=== PATIENT | male | born 1940 | race Two or more races ===

== ENCOUNTER 2018-08-13 00:40 | Inpatient (IN) | payer MEDICARE, OTHER ==
[~2018-08-13] VITALS: Ht 175.3 cm; Wt 78.5 kg
--- NOTE | 2018-08-13 00:42 | NUR ---
[id number] FROM HOME C/C GENERALIZED WEAKNESS X1 DAY. LAST WELL KNOWN TIME STATED BY DAUGHTER YESTERDAY. -CP. -COUGH. -DYSURIA. FEBRILE. -N/V/D., TO ER BED 4, HOOKED TO MONITOR, AWAITING MD GERARDO
--- NOTE | 2018-08-13 00:45 | NUR ---
DR BEGUM AT BEDSIDE
[2018-08-13] MEDS ORDERED: ACETAMINOPHEN 650 MG/20.3 ML UDC PO ONE (01:00)
[2018-08-13] MEDS ORDERED: KETOROLAC TROMETHAMINE INJ 30 MG/ML VIAL IV ONE (01:00)
[2018-08-13] MEDS ORDERED: IV NS 0.9% 1,000 ML BAG IV ONE (01:00)
[2018-08-13] MEDS ORDERED: KETOROLAC TROMETHAMINE 15 MG/ML VIAL ONE (01:04)
[2018-08-13] MEDS ORDERED: ACETAMINOPHEN 325 MG TABLET ONE (01:04)
[2018-08-13 01:12] LABS: BASOPHILS % (AUTO) 0.1 % (0.0-2.0); HEMATOCRIT 42 % (39-51); HEMOGLOBIN 13.9 g/dL (13.5-17.5); LYMPHOCYTES # (AUTO) 0.3 /CMM (0.8-4.8); LYMPHOCYTES % (AUTO) 1.7 % (20.0-44.0); MEAN CORPUSCULAR HGB CONC 33 g/dl (31.0-36.0); MEAN CORPUSCULAR VOLUME 90 fL (80-96); MONOCYTES # (AUTO) 0.7 /CMM (0.1-1.30); MONOCYTES % (AUTO) 3.9 % (2.0-12.0); NEUTROPHILS # (AUTO) 16.5 /CMM (1.8-8.9); NEUTROPHILS % (AUTO) 94.3 % (43.0-81.0); PLATELET COUNT (AUTO) 191 /CMM (150-450); RED BLOOD CELL COUNT(AUTO) 4.67 MIL/uL (4.5-6.0); WHITE BLOOD COUNT (AUTO) 17.5 K/uL (4.3-11.0)
[2018-08-13 01:15] LABS: CALCIUM, SERUM 9.2 mg/dL (8.5-10.1); CARBON DIOXIDE 25 mmol/L (21-32); CHLORIDE 106 mmol/L (98-107); CREATININE 1.8 mg/dL (0.6-1.3); GLUCOSE 135 mg/dL (74-106); POTASSIUM 4.9 mmol/L (3.5-5.1); SODIUM SERUM 141 mmol/L (136-145); UREA NITROGEN, BLOOD 24 mg/dL (7-18)
[2018-08-13 01:20] LABS: ALANINE AMINOTRANSFERASE 20 U/L (12-78); ALBUMIN 3.6 g/dL (3.4-5.0); ALKALINE PHOSPHATASE 78 U/L (46-116); ASPARTATE AMINOTRANSFERASE 27 U/L (15-37); BILIRUBIN,TOTAL 0.4 mg/dL (0.2-1.0); TOTAL PROTEIN, SERUM 7.6 g/dL (6.4-8.2)
[2018-08-13 01:23] LABS: APPEARANCE,URINE Slightly Cloudy (CLEAR); BILIRUBIN,URINE Negative (NEGATIVE); BLOOD, URINE Trace-lysed Ery/uL (NEGATIVE); COLOR,URINE Yellow (YELLOW); KETONES,URINE Trace (NEGATIVE); LEUKOCYTE ESTERASE ,URINE Trace (NEGATIVE); NITRITE, URINE Negative (NEGATIVE); PH,URINE 5.5 (5.0-8.0); PROTEIN,URINE >=300 mg/dl (NEGATIVE); UGLUCOSE 100 MG/DL mg/dL (NEGATIVE); UROBILINOGEN,URINE 0.2 EU/dL (0.2)
[2018-08-13] MEDS ORDERED: VANCOMYCIN 1 GM in IV NS 0.9% 250 ML IV STA (01:34)
[2018-08-13] MEDS ORDERED: CEFEPIME 1 GM in IV NS 0.9% 50 ML IV STA (01:34)
--- NOTE | 2018-08-13 01:41 | NUR ---
FLU SWAB DONE AND SENT TO LAB
[2018-08-13] MEDS ORDERED: VANCOMYCIN 1 GM VIAL ONE (01:43)
[2018-08-13] MEDS ORDERED: CEFEPIME 1 GM VIAL ONE (01:43)
[2018-08-13 01:52] LABS: BACTERIA,URINE Few /HPF (None Seen); WBC,URINE 51-80 /HPF (0-3)
[2018-08-13 01:53] LABS: SQUAMOUS EPITHELIAL CELL,UR Rare /HPF (None Seen)
[2018-08-13] MEDS ORDERED: MAG HYDROX/AL HYDROX/SIMETH 30 ML UDC PO PRN (02:30)
[2018-08-13] MEDS ORDERED: Z GUARD REMEDY 2 OZ OINT TP PRN (02:30)
[2018-08-13] MEDS ORDERED: MAGNESIUM HYDROXIDE 30 ML UDC PO PRN (02:30)
[2018-08-13] MEDS ORDERED: ACETAMINOPHEN 325 MG TABLET PO PRN (02:30)
[2018-08-13] MEDS ORDERED: ONDANSETRON HCL/PF 4 MG/2 ML VIAL IVP PRN (02:30)
[2018-08-13] MEDS ORDERED: ZOLPIDEM TARTRATE 5 MG TABLET PO PRN (02:30)
[2018-08-13] MEDS ORDERED: HYDROCODONE/APAP 5/325MG 1 EACH TABLET PO PRN (02:30)
--- NOTE | 2018-08-13 02:53 | NUR ---
REPORT GIVEN TO BRUNO PADILLA FOR [facility]
--- NOTE | 2018-08-13 02:53 | NUR ---
REPORT GIVEN TO KIZZY PADILLA OF TELE UNIT FOR [facility]
[2018-08-13] MEDS ORDERED: CEFTRIAXONE 1 G in IV D5W 50 ML IV ONE (03:30)
--- NOTE | 2018-08-13 03:33 | NUR ---
PT TRANSFERRED PER [facility]
[2018-08-13] MEDS ORDERED: CEFTRIAXONE 1 G VIAL ONE (03:37)
[2018-08-13] MEDS: IV NS 0.9% 1,000 ML IV SCH ×3 (03:54→22:28)
[2018-08-13 04:00] VITALS: BP 135/70
[2018-08-13] MEDS ORDERED: EZET10TA14 PO (04:08)
[2018-08-13] MEDS ORDERED: [UNRECOGNIZED DRUG - CODE] IV (04:08)
[2018-08-13] MEDS ORDERED: METO100T14 PO (04:08)
[2018-08-13] MEDS ORDERED: FINA5TAB11 PO (04:08)
[2018-08-13] MEDS ORDERED: ROSU20TA2 PO (04:09)
[2018-08-13] MEDS ORDERED: MEMA10TA PO (04:09)
[2018-08-13] MEDS ORDERED: CLON0.1T PO (04:09)
[2018-08-13] MEDS ORDERED: NIAC500T2 PO (04:09)
[2018-08-13] MEDS ORDERED: METF500S7 PO (04:09)
[2018-08-13] MEDS ORDERED: GLIP5TAB13 PO (04:09)
[2018-08-13] MEDS ORDERED: AMLO-335 PO (04:09)
[2018-08-13] MEDS ORDERED: OMEP20CA10 PO (04:09)
[2018-08-13] MEDS ORDERED: DONE10TA11 PO (04:09)
[2018-08-13] MEDS ORDERED: RIVA10TA PO (04:09)
[2018-08-13] MEDS ORDERED: CHOL20004 PO (04:09)
--- NOTE | 2018-08-13 04:30 | NUR ---
TANK TRUCK MECHANIC NOTES RECEIVED PT ON BED. ON ROOM AIR NO RESPIRATORY DISTRESS NOTED. ON TELE MONITOR SR. PHYSICAL ASSESSMENT AND PICTURE TAKEN DONE. BELONGING LIST SIGNED. PT DAUGHTER WISHES DO NOT INTUBATE OKAY TO CPR. HEAD OF BED ELEVATED. SIDE RAILS UP. CALL LIGHT WITHIN REACH. BED ALARM ON. WILL CONTINUE TO MONITOR PT CLOSELY.
--- NOTE | 2018-08-13 05:05 | NUR ---
DEMAND MANAGER NOTES PT DAUGHTER REFUSING VACCINE FOR NOW. WILL DECIDE LATER DURING THE STAY.
--- NOTE | 2018-08-13 07:21 | NUR ---
FOUNTAIN SUPERVISOR NOTES NO ACUTE CHANGES NOTED DURING THE SHIFT. PROVIDED COMFORT AND SAFETY. WILL ENDORSE TO THE AM NURSE FOR CONTINUITY OF CARE.
[2018-08-13 08:00] VITALS: BP 145/76
--- NOTE | 2018-08-13 08:00 | NUR ---
SENIOR WEB DESIGNER NOTE RECEIVED PATIENT UP ON CHAIR WITH DAUGHTER AT BEDSIDE ,HAVING BREAKFAST , ALERT ORIENTED X3, SPEAKS [id number],, ON TELE MONITOR SR HR 76, LT FA HL INTACT ,ON IVF ORDERED CALL LIGHT WIBI REACH , PLAN OF CARE DISCUSSED WITH PATIENT , NO SOB NOTED, NO C\O PAIN OR DISCOMFORT. WILL CONT TO MONITOR CLOSELY
[2018-08-13 08:41] LABS: BASOPHILS % (AUTO) 0.2 % (0.0-2.0); HEMATOCRIT 34 % (39-51); HEMOGLOBIN 11.1 g/dL (13.5-17.5); LYMPHOCYTES # (AUTO) 0.5 /CMM (0.8-4.8); LYMPHOCYTES % (AUTO) 3.6 % (20.0-44.0); MEAN CORPUSCULAR HGB CONC 33 g/dl (31.0-36.0); MEAN CORPUSCULAR VOLUME 90 fL (80-96); MONOCYTES # (AUTO) 0.6 /CMM (0.1-1.30); MONOCYTES % (AUTO) 4.4 % (2.0-12.0); NEUTROPHILS # (AUTO) 12.9 /CMM (1.8-8.9); NEUTROPHILS % (AUTO) 91.8 % (43.0-81.0); PLATELET COUNT (AUTO) 144 /CMM (150-450); RED BLOOD CELL COUNT(AUTO) 3.76 MIL/uL (4.5-6.0); WHITE BLOOD COUNT (AUTO) 14.1 K/uL (4.3-11.0)
[2018-08-13 08:44] LABS: CALCIUM, SERUM 7.5 mg/dL (8.5-10.1); CARBON DIOXIDE 26 mmol/L (21-32); CHLORIDE 107 mmol/L (98-107); CREATININE 1.6 mg/dL (0.6-1.3); GLUCOSE 124 mg/dL (74-106); POTASSIUM 3.8 mmol/L (3.5-5.1); SODIUM SERUM 142 mmol/L (136-145); UREA NITROGEN, BLOOD 22 mg/dL (7-18)
[2018-08-13] MEDS ORDERED: DEXTROSE 50%-WATER 50 ML DISP.SYRIN IV PRN (09:00)
[2018-08-13] MEDS ORDERED: FLUMAZENIL 0.5 MG VIAL IV SCH (09:00)
[2018-08-13] MEDS ORDERED: FLUMAZENIL 0.5 MG VIAL IV PRN (09:30)
[2018-08-13] MEDS: RIVAROXABAN 10 MG TABLET PO SCH (10:09)
[2018-08-13] MEDS: MEMANTINE HCL 5 MG TABLET PO SCH (10:10)
[2018-08-13] MEDS: PANTOPRAZOLE 40 MG TABLET.DR PO SCH (10:11)
[2018-08-13] MEDS: EZETIMIBE 10 MG TABLET PO SCH (10:11)
[2018-08-13] MEDS: NIACIN EXT TAB (500MG) 500 MG TABLET.SA PO SCH (10:12)
[2018-08-13] MEDS: FINASTERIDE (5 MG) 5 MG TABLET PO SCH (10:12)
[2018-08-13] MEDS: VALSARTAN 80 MG TABLET PO SCH (10:15)
[2018-08-13] MEDS: CLONIDINE HCL 0.1 MG TABLET PO SCH (10:15)
[2018-08-13] MEDS: AMLODIPINE BESYLATE 10 MG TABLET PO SCH (10:16)
[2018-08-13] MEDS ORDERED: TAMSULOSIN 0.4 MG CAP.SR.24H PO SCH (10:30)
--- NOTE | 2018-08-13 11:07 | NUR ---
MS RN NOTE PT DONE ABLE TO AMBULATE WITH STAND BY ASSISTANCE, ALSO RENAL US DONE ORDERED ,WILL F\U Addendum: 08/13/18 at 1117 by MIGUEL ANGEL SANTIAGO RN PER ALEXANDER PADILLA STEAM SERVICE INSPECTOR NO DVT PUMP ,PATIENT HAS HX DVT ,ON XARELTO
[2018-08-13 12:00] VITALS: BP 139/81
[2018-08-13] MEDS: BLOOD SUGAR DIAGNOSTIC 1 EACH STRIP IN SCH ×3 (12:26→22:26)
[2018-08-13] MEDS: INSULIN REGULAR, HUMAN 100 UNIT/ML 3 ML VIAL SQ PRN ×2 (12:44→22:32)
--- NOTE | 2018-08-13 14:00 | NUR ---
MS RN NOTE NEW HL ON RT HAND LARISSA 22 INSERTED WITH F GOOD BLOOD RETURN ,CONT ON IVF ORDERED
--- NOTE | 2018-08-13 15:49 | NUR ---
MS RN NOTE UA COLLECTED ORDERED, KEEP CLEAN DRY
[2018-08-13 16:00] VITALS: BP 145/67
[2018-08-13 16:19] LABS: APPEARANCE,URINE CLEAR (CLEAR); BILIRUBIN,URINE NEGATIVE (NEGATIVE); BLOOD, URINE 2+ Ery/uL (NEGATIVE); COLOR,URINE YELLOW (YELLOW); KETONES,URINE NEGATIVE (NEGATIVE); LEUKOCYTE ESTERASE ,URINE TRACE (NEGATIVE); NITRITE, URINE NEGATIVE (NEGATIVE); PH,URINE 5.5 (5.0-8.0); PROTEIN,URINE 3+ mg/dl (NEGATIVE); UGLUCOSE NEGATIVE (NEGATIVE); UROBILINOGEN,URINE 0.2 EU/dL (0.2)
[2018-08-13 16:28] LABS: BACTERIA,URINE Few /HPF (None Seen); RBC,URINE 15-25 /HPF (0-2); SQUAMOUS EPITHELIAL CELL,UR Rare /HPF (None Seen)
[2018-08-13 16:33] LABS: CREATININE, URINE 134.9 MG/DL (30.0-125.0); URINE TOTAL PROTEIN 438.3 mg/dL (0-11.9)
--- NOTE | 2018-08-13 18:23 | NUR ---
MS RN NOTE HAVING DINNER , FED BY WEAVING SUPERVISOR , ALL NEEDS ATTENDED, CONT ON IVF ORDERED .CALL LIGHT WITHIN REACH, NOT IN DISTRESSES, WILL CONT TO MONITOR CLOSELY
[2018-08-13 18:40] LABS: EOSINOPHIL,URINE None Seen
[2018-08-13 20:00] VITALS: BP 133/57
--- NOTE | 2018-08-13 20:00 | NUR ---
RED RN NOTE RECEIVED PATIENT IN BED WITH DAUGHTER AT BEDSIDE , ALERT ORIENTED X3, SPEAKS NEPALI,, RIGHT HAND IV LINE IS PATIENT AND INTACT ON IVF ORDERED. CALL LIGHT WITH IN REACH , PLAN OF CARE DISCUSSED WITH PATIENT AND FAMILY , NO SOB NOTED, NO C\O PAIN OR DISCOMFORT. WILL CONT TO MONITOR CLOSELY.
[2018-08-13] MEDS: TAMSULOSIN 0.4 MG CAP.SR.24H PO SCH (21:07)
[2018-08-13] MEDS: DONEPEZIL 5 MG TABLET PO SCH (22:26)
[2018-08-14] MEDS: CEFTRIAXONE 1 G in IV D5W 50 ML IV SCH (00:33)
[2018-08-14 04:00] VITALS: BP 144/77
[2018-08-14 07:05] LABS: BASOPHILS % (AUTO) 0.4 % (0.0-2.0); EOSINOPHILS % (AUTO) 0.5 % (0.0-6.0); HEMATOCRIT 28 % (39-51); HEMOGLOBIN 9.2 g/dL (13.5-17.5); LYMPHOCYTES # (AUTO) 0.9 /CMM (0.8-4.8); LYMPHOCYTES % (AUTO) 13.6 % (20.0-44.0); MEAN CORPUSCULAR HGB CONC 33 g/dl (31.0-36.0); MEAN CORPUSCULAR VOLUME 91 fL (80-96); MONOCYTES # (AUTO) 0.4 /CMM (0.1-1.30); NEUTROPHILS # (AUTO) 5.5 /CMM (1.8-8.9); NEUTROPHILS % (AUTO) 79.5 % (43.0-81.0); PLATELET COUNT (AUTO) 110 /CMM (150-450); RED BLOOD CELL COUNT(AUTO) 3.05 MIL/uL (4.5-6.0)
[2018-08-14 07:20] LABS: ALANINE AMINOTRANSFERASE 11 U/L (12-78); ALBUMIN 2.1 g/dL (3.4-5.0); ALKALINE PHOSPHATASE 43 U/L (46-116); ASPARTATE AMINOTRANSFERASE 22 U/L (15-37); BILIRUBIN,TOTAL 0.2 mg/dL (0.2-1.0); CALCIUM, SERUM 6.3 mg/dL (8.5-10.1); CARBON DIOXIDE 20 mmol/L (21-32); CHLORIDE 113 mmol/L (98-107); CREATININE 1.1 mg/dL (0.6-1.3); GLUCOSE 93 mg/dL (74-106); PHOSPHORUS 2.9 mg/dL (2.5-4.9); POTASSIUM 3.4 mmol/L (3.5-5.1); SODIUM SERUM 145 mmol/L (136-145); TOTAL PROTEIN, SERUM 4.9 g/dL (6.4-8.2); UREA NITROGEN, BLOOD 17 mg/dL (7-18)
[2018-08-14 07:29] LABS: CHOLESTEROL 97 mg/dL (<200); CREATINE KINASE, TOTAL 234 U/L (39-308); HDL CHOLESTEROL 60 mg/dL (40-60); LDL 27 mg/dL (0-99); TRIGLYCERIDES 87 mg/dL (30-150)
[2018-08-14] MEDS: BLOOD SUGAR DIAGNOSTIC 1 EACH STRIP IN SCH ×4 (07:30→22:45)
[2018-08-14 07:51] LABS: MAGNESIUM 1.2 mg/dL (1.8-2.4)
[2018-08-14 08:00] VITALS: BP 159/85
--- NOTE | 2018-08-14 08:24 | NUR ---
RN AM SHIFT NOTE PATIENT ALERT AND ORIENTED, IN BED AWAKE NO COMPLAINTS OF PAIN. BED LOW TO FLOOR IV PATENT AND INTACT. REPORTED TO VENEER JOINTER OPERATOR PATIENTS POTASSIUM 3.4 AND MAGNESIUM 1.2. ORDERS TO REPLACE BOTH IV PER VENEER JOINTER OPERATOR. CONTINUE TO MONITOR.
[2018-08-14] MEDS: IV NS 0.9% 1,000 ML IV SCH ×2 (08:30→17:31)
[2018-08-14] MEDS: FINASTERIDE (5 MG) 5 MG TABLET PO SCH (08:37)
[2018-08-14] MEDS: CLONIDINE HCL 0.1 MG TABLET PO SCH (08:37)
[2018-08-14] MEDS: TAMSULOSIN 0.4 MG CAP.SR.24H PO SCH ×2 (08:38→21:39)
[2018-08-14] MEDS: ATORVASTATIN 40 MG TABLET PO SCH (08:38)
[2018-08-14] MEDS: VALSARTAN 80 MG TABLET PO SCH (08:38)
[2018-08-14] MEDS: MEMANTINE HCL 5 MG TABLET PO SCH (08:38)
[2018-08-14] MEDS: EZETIMIBE 10 MG TABLET PO SCH (08:38)
[2018-08-14] MEDS: PANTOPRAZOLE 40 MG TABLET.DR PO SCH (09:05)
[2018-08-14] MEDS: POTASSIUM CL. PREMIX PERIPHER. 50 ML IV SCH ×4 (09:07→17:14)
[2018-08-14] MEDS: NIACIN EXT TAB (500MG) 500 MG TABLET.SA PO SCH (09:39)
[2018-08-14] MEDS: AMLODIPINE BESYLATE 10 MG TABLET PO SCH (09:40)
[2018-08-14] MEDS: RIVAROXABAN 10 MG TABLET PO SCH (09:41)
[2018-08-14] MEDS: INSULIN REGULAR, HUMAN 100 UNIT/ML 3 ML VIAL SQ PRN ×3 (09:43→22:45)
[2018-08-14 12:00] VITALS: BP 145/80
[2018-08-14] MEDS: Magnesium 1GM/D5W 100ML PREMIX 100 ML IV SCH (14:26)
[2018-08-14 16:00] VITALS: BP 147/67
--- NOTE | 2018-08-14 19:18 | NUR ---
RN PM SHIFT NOTE PATIENT IN BED, SIDE RAILS UP, BED ALARM ON, IN LOW POSITION. IV PATENT AND INTACT. BLOOD SUGAR MANAGED PER MD ORDERS. DAUGHTER LARYR AT BEDSIDE ALL DAY. MAGNESIUM AND POTASSIUM WERE REPLACED TODAY. PATIENT ATE WELL 100% ALL MEALS. PLAN FOR D/C PER FOOD SERVICE MANAGER TOMORROW 08/15. CONTINUE TO MONITOR.
[2018-08-14 20:00] VITALS: BP 147/79
[2018-08-14] MEDS: DONEPEZIL 5 MG TABLET PO SCH (21:39)
[2018-08-14] MEDS ORDERED: IV NS 0.9% 1,000 ML IV PRN (22:00)
[2018-08-15] MEDS: CEFTRIAXONE 1 G in IV D5W 50 ML IV SCH (00:17)
[2018-08-15 04:00] VITALS: BP 157/77
[2018-08-15] MEDS: BLOOD SUGAR DIAGNOSTIC 1 EACH STRIP IN SCH (07:30)
[2018-08-15] MEDS: PANTOPRAZOLE 40 MG TABLET.DR PO SCH (07:30)
[2018-08-15 08:00] VITALS: BP 172/76
[2018-08-15] MEDS: VALSARTAN 80 MG TABLET PO SCH (09:06)
[2018-08-15] MEDS: MEMANTINE HCL 5 MG TABLET PO SCH (09:07)
[2018-08-15] MEDS: TAMSULOSIN 0.4 MG CAP.SR.24H PO SCH (09:07)
[2018-08-15] MEDS: ATORVASTATIN 40 MG TABLET PO SCH (09:07)
[2018-08-15] MEDS: FINASTERIDE (5 MG) 5 MG TABLET PO SCH (09:07)
[2018-08-15] MEDS: RIVAROXABAN 10 MG TABLET PO SCH (09:12)
[2018-08-15 09:20] VITALS: BP 172/76
[2018-08-15] MEDS: CLONIDINE HCL 0.1 MG TABLET PO SCH (09:20)
[2018-08-15] MEDS: AMLODIPINE BESYLATE 10 MG TABLET PO SCH (09:20)
--- NOTE | 2018-08-15 09:21 | NUR ---
RN NOTE PATIENTS BLOOD PRESSURE ELEVATED GAVE MEDICATION PER MD ORDER. SP0KE WITH ULTRASONIC SOLDERER, DISCHARGE PATIENT TODAY. DAUGHTER IS AWARE, ON HER WAY TO PICK HIM UP. NO DISCOMFORT OR PAIN NOTED. NO S/S OF INFECTION.
--- NOTE | 2018-08-15 09:21 | NUR ---
RN AM NOTE PATIENT IN BED ALERT GREEK SPEAKING. NO LABS DRAWN FOR TODAY. D/C PLANNING PER FAMILY AND CONSUMER SCIENCES PROFESSOR. SPOKE WITH DAUGHTER. WILL CONT TO MONITOR PATIENT.
--- NOTE | 2018-08-15 09:23 | NUR ---
RN NOTE AM MEDICATION BARCODE DID NOT SAVE DURING SCAN. ALL AM MEDICATIONS GIVEN.
[2018-08-15] MEDS: EZETIMIBE 10 MG TABLET PO SCH (09:52)
[2018-08-15 11:13] LABS: *SPE ALBUMIN 2.5 g/dL (2.9-4.4); *SPE ALPHA-1-GLOBULIN 0.4 g/dL (0.0-0.4); *SPE ALPHA-2-GLOBULIN 0.9 g/dL (0.4-1.0); *SPE BETA GLOBULIN 0.7 g/dL (0.7-1.3); *SPE GLOBULIN, TOTAL 2.5 g/dL (2.2-3.9); *SPE M-SPIKE Not Observed g/dL (Not Observed); *SPEGAMMA GLOBULIN 0.6 g/dL (0.4-1.8)
[2018-08-15 13:13] LABS: PTH, INTACT 55 pg/mL (15-65)
== END 2018-08-15 12:01 | disposition home or self-care (01) | DRG 871 ==
LOC: ER 00:41 → TELE1 02:13 → MEDSG1 10:05
PROVIDERS: ADMIT Nurse Practitioner Acute Care; ATTEND Nurse Practitioner Acute Care
DX: A41.9 Sepsis, unspecified organism (principal); N17.0 Acute kidney failure with tubular necrosis; N39.0 Urinary tract infection, site not specified; N17.9 Acute kidney failure, unspecified; E87.2 Acidosis; R65.20 Severe sepsis without septic shock; K21.9 Gastro-esophageal reflux disease without esophagitis; E11.22 Type 2 diabetes mellitus with diabetic chronic kidney disease; E83.42 Hypomagnesemia; I12.9 Hypertensive chronic kidney disease with stage 1 through stage 4 chronic kidney disease, or unspecified chronic kidney disease; N28.1 Cyst of kidney, acquired; N18.9 Chronic kidney disease, unspecified; N40.0 Benign prostatic hyperplasia without lower urinary tract symptoms; E11.51 Type 2 diabetes mellitus with diabetic peripheral angiopathy without gangrene; Z86.73 Personal history of transient ischemic attack (TIA), and cerebral infarction without residual deficits; Z95.810 Presence of automatic (implantable) cardiac defibrillator; E83.51 Hypocalcemia; E87.6 Hypokalemia; F03.90 Unspecified dementia, unspecified severity, without behavioral disturbance, psychotic disturbance, mood disturbance, and anxiety; F17.210 Nicotine dependence, cigarettes, uncomplicated; R32 Unspecified urinary incontinence; E78.5 Hyperlipidemia, unspecified
CPT/HCPCS: 36415; 71045-TC; 76770-TC; 80048-TC; 80053-TC; 80061-TC; 80076-TC; 81000-TC; 82550-TC; 82570-TC; 82962-TC; 83605-TC; 83735-TC; 83970; 84100-TC; 84155; 84155-TC; 84165; 84300-TC; 84484-TC; 85025-TC; 85730-TC; 87040-TC; 87081-TC; 87086-TC; 87400; A4216; A6403; G0378; J0692; J0696; J1815; J1885; J3370; J3475; J3480; J7030; J7040; J7060